=== PATIENT | female | born 1995 | race American Indian/Alaskan Native ===

== ENCOUNTER 2019-02-10 18:58 | Emergency (ER) | payer MEDICAID ==
[2019-02-10] MEDS ORDERED: MORPHINE ONE (19:19)
[2019-02-10] MEDS ORDERED: ZOFRAN ONE (19:19)
[2019-02-10] MEDS ORDERED: XYLOCAINE 1% 20 mL ONE (19:20)
[2019-02-10] MEDS ORDERED: DIPRIVAN 10 MG/ML IV ONE ×2 (19:29→19:30)
[2019-02-10] MEDS ORDERED: MORPHINE IV ONE (19:31)
[2019-02-10] MEDS ORDERED: ZOFRAN IV ONE (19:32)
--- NOTE | 2019-02-10 19:41 | Emergency Department Report ---
ED General Adult HPI - General Chief complaint: Extremity Injury, Lower Stated complaint: RT SHOULDER POSS DISLOCTAED/PAIN Time Seen by Provider: 02/10/19 19:19 Source: patient Mode of arrival: Wheelchair Limitations: No Limitations - History of Present Illness Initial comments: 23-year-old female who is right-hand dominant presents after stating she had a fall on the side of the bed earlier today. Patient states she has no prior history of dislocation. Patient denies any head trauma neck pain or extremity injury to her lower or her opposing upper extremity. Patient states the pain is a 10 out of 10. Severity scale (0 -10): 10 - Related Data Previous Rx's Medication Instructions Recorded Last Taken Type Ibuprofen [Motrin 800 MG tab] 800 mg PO Q8HR PRN #20 tablet 02/10/19 Unknown Rx Allergies Allergy/AdvReac Type Severity Reaction Status Date / Time No Known Allergies Allergy Unverified 02/10/19 19:00 ED Review of Systems ROS: Stated complaint: RT SHOULDER POSS DISLOCTAED/PAIN Other details as noted in HPI Constitutional: denies: chills, fever Eyes: denies: eye pain, eye discharge, vision change ENT: denies: ear pain, throat pain Respiratory: denies: cough, shortness of breath, wheezing Cardiovascular: denies: chest pain, palpitations Endocrine: no symptoms reported Gastrointestinal: denies: abdominal pain, nausea, diarrhea Genitourinary: denies: urgency, dysuria, discharge Musculoskeletal: other (shoulder pain) Skin: denies: rash, lesions Neurological: denies: headache, weakness, paresthesias Psychiatric: denies: anxiety, depression Hematological/Lymphatic: denies: easy bleeding, easy bruising ED Past Medical Hx - Past Medical History Previous Medical History?: No - Surgical History Past Surgical History?: No - Social History Smoking Status: Current Some Day Smoker Substance Use Type: None - Medications Home Medications: Home Medications Medication Instructions Recorded Confirmed Last Taken Type Ibuprofen [Motrin 800 MG tab] 800 mg PO Q8HR PRN #20 tablet 02/10/19 Unknown Rx ED Physical Exam - General Limitations: No Limitations General appearance: alert, other (uncomfortable; ) - Head Head exam: Present: atraumatic, normocephalic - Eye Eye exam: Present: normal appearance - ENT ENT exam: Present: mucous membranes moist - Neck Neck exam: Present: normal inspection - Respiratory Respiratory exam: Present: normal lung sounds bilaterally. Absent: respiratory distress - Cardiovascular Cardiovascular Exam: Present: regular rate, normal rhythm. Absent: systolic murmur, diastolic murmur, rubs, gallop - GI/Abdominal GI/Abdominal exam: Present: soft, normal bowel sounds - Extremities Exam Extremities exam: Present: normal inspection, other (obvious deformity noted to right shoulder region; limited ROM) - Back Exam Back exam: Present: normal inspection - Neurological Exam Neurological exam: Present: alert, oriented X3 - Psychiatric Psychiatric exam: Present: normal affect, normal mood - Skin Skin exam: Present: warm, dry, intact, normal color. Absent: rash ED Course Vital Signs 02/10/19 02/10/19 02/10/19 19:01 20:35 20:53 Temperature 98.9 F Pulse Rate 83 72 Pulse Rate [ 81 Intra-Procedure ] Pulse Rate [ 73 Post-Procedure] Pulse Rate [Pre 81 -Procedure] Respiratory 24 17 Rate Respiratory 23 Rate [Intra- Procedure] Respiratory 16 Rate [Post- Procedure] Respiratory 17 Rate [Pre- Procedure] Blood Pressure 118/76 [Intra- Procedure] Blood Pressure 118/78 [Post-Procedure ] Blood Pressure 111/83 [Pre-Procedure] Blood Pressure 119/80 [Right] O2 Sat by Pulse 100 Oximetry O2 Sat by Pulse 100 Oximetry [ Intra-Procedure ] O2 Sat by Pulse 100 Oximetry [Post -Procedure] O2 Sat by Pulse 100 Oximetry [Pre- Procedure] - Orthopedic Joint Reduction Joint #1 Consent Obtained: written consent Time Out Performed: Yes Side: right Joint Reduction Location: shoulder Analgesia: moderate sedation Local Anesthetic Used: Lidocaine 1% Amount of Anesthetic Used (mls): 5 Shoulder Technique Used (if applicable): traction/counter-traction, external rotation Technique Used: traction/counter-traction Post-Reduction Neuro Exam: intact Post-Reduction Vascular Exam: intact Post Reduction X-Ray Obtained: Yes Post Reduction X-Ray Results: reduced Splint Applied: Yes Patient Tolerated Procedure: well Critical care attestation.: If time is entered above; I have spent that time in minutes in the direct care of this critically ill patient, excluding procedure time. ED Disposition Clinical Impression: Anterior shoulder dislocation Disposition: - TO HOME OR SELFCARE Is pt being admited?: No Condition: Stable Instructions: Shoulder Dislocation (ED) Prescriptions: Ibuprofen [Motrin 800 MG tab] 800 mg PO Q8HR PRN #20 tablet PRN Reason: Pain, Moderate (4-6) Referrals: AIDE FULLER MD [Staff Physician] - 3-5 Days Time of Disposition: 21:06 Print Language: LATVIAN
--- NOTE | 2019-02-10 20:03 | XRay Report ---
Right shoulder, 2 views INDICATION: Pain following fall today FINDINGS: There is an anteroinferior shoulder dislocation present without definite fracture. Signer Name: Laurent Zuleta MD Signed: 02/10/2019 7:59 PM Workstation Name: [id number]
--- NOTE | 2019-02-10 20:54 | XRay Report ---
Right shoulder-2 views INDICATION: shoulder reduction. COMPARISON: None. IMPRESSION: Interval relocation of the shoulder with no gross fracture identified. Visualized right lung is clear. No significant DJD. Signer Name: Raúl Thompson MD Signed: 02/10/2019 8:50 PM Workstation Name: [id number]
[2019-02-10 21:57] VITALS: BP 122/83
== END 2019-02-10 21:56 | disposition home or self-care (01) ==
LOC: ED 18:58
DX: S43.084A Other dislocation of right shoulder joint, initial encounter (principal); F17.200 Nicotine dependence, unspecified, uncomplicated; W19.XXXA Unspecified fall, initial encounter; Y93.89 Activity, other specified; Y92.89 Other specified places as the place of occurrence of the external cause; Y99.8 Other external cause status
CPT/HCPCS: 23650; 73020; 73030; 96374; 96375; 99283; J2270; J2405; J2704

== ENCOUNTER 2020-11-17 17:31 | Outpatient (CLI) | payer BC, MEDICAID ==
[2020-11-17 18:14] VITALS: BP 97/58
[2020-11-17] MEDS ORDERED: LACTATED RINGERS 1,000 ML IV ONE (18:14)
[2020-11-17 18:51] LABS: Bilirubin,Urine NEG (Negative); Blood,Urine SM (Negative); Color,Urine Yellow (Yellow); Mucus,Urine FEW /HPF; Protein,Urine <15 mg/dL mg/dL (Negative); Urobilinogen,Urine < 2.0 mg/dL (<2.0)
== END 2020-11-17 20:35 | disposition home or self-care (01) ==
LOC: TRG 17:31 → APU 17:34 → TRG 20:35
DX: O26.852 Spotting complicating pregnancy, second trimester (principal); Z3A.24 24 weeks gestation of pregnancy
CPT/HCPCS: 59025; 81001

== ENCOUNTER 2021-03-06 07:23 | Outpatient (CLI) | payer MEDICAID ==
[2021-03-06 08:00] VITALS: BP 111/66
== END 2021-03-06 09:39 | disposition home or self-care (01) ==
LOC: TRG 07:23 → APU 07:24 → TRG 09:39
PROVIDERS: ATTEND Obstetrics & Gynecology
DX: Z34.93 Encounter for supervision of normal pregnancy, unspecified, third trimester (principal); Z3A.40 40 weeks gestation of pregnancy
CPT/HCPCS: 59025

== ENCOUNTER 2021-03-07 02:06 | Inpatient (IN) | payer MEDICAID ==
[2021-03-07] MEDS ORDERED: miSOPROStol 200 MCG TAB PR PRN (02:10)
[2021-03-07] MEDS ORDERED: ACETAMINOPHEN 325 MG TAB PO PRN ×2 (02:10→04:10)
[2021-03-07] MEDS ORDERED: NALOXONE 0.4 MG/1 ML INJ IV PRN (02:10)
[2021-03-07] MEDS ORDERED: MINERAL OIL 30 ML ORAL LIQD PO PRN (02:10)
[2021-03-07] MEDS ORDERED: PROMETHAZINE 25 MG TAB PO PRN ×2 (02:10→04:10)
[2021-03-07] MEDS ORDERED: OXYTOCIN 10 UNIT/1 ML INJ IM PRN (02:10)
[2021-03-07] MEDS ORDERED: BUTORPHANOL 2 MG/1 ML INJ IV PRN ×2 (02:10)
[2021-03-07] MEDS ORDERED: LOPERAMIDE 2 MG CAP PO PRN (02:10)
[2021-03-07] MEDS ORDERED: CARBOPROST TROMETHAMINE 250 MCG/1 ML INJ IM PRN (02:10)
[2021-03-07] MEDS ORDERED: LIDOCAINE (2%) 20 MG/1 ML VIAL 20 ML MDV INFILTRATI ONE (02:10)
[2021-03-07] MEDS ORDERED: ePHEDrine SULFATE 50 MG/1 ML INJ IV PRN ×2 (02:10→03:01)
[2021-03-07] MEDS ORDERED: AMPICILLIN/NS 2 GM/100 ML 2 GM/100 ML BAG IV ONE (02:10)
[2021-03-07] MEDS ORDERED: TERBUTALINE 1 MG/1 ML INJ SUB-Q PRN (02:10)
[2021-03-07] MEDS ORDERED: METHYLERGONOVINE MALEATE 0.2 MG/ML VIAL IM PRN (02:10)
[2021-03-07] MEDS ORDERED: ONDANSETRON 4 MG/2 ML INJ IV PRN ×3 (02:10→04:10)
[2021-03-07] MEDS ORDERED: LACTATED RINGERS 1,000 ML IV SCH (02:15)
--- NOTE | 2021-03-07 02:18 | History and Physical Report ---
History of Present Illness Date of examination: 03/07/21 Date of admission: 03/07/21 02:08 Chief complaint: contractions History of present illness: 25-year-old G2, P1 at 40 weeks 2 day by stated ADITI (03/05/2021) complicated by varicella nonimmune, silent carrier of alpha thalassemia, and GBS positive presenting in active labor, 7 cm. Denies vaginal bleeding or leakage of fluid. Active fetus. Denies PIH symptoms PNC reviewed B+ antibody negative Hemoglobin hematocrit 13.5 and 40.9 Pap smear negative Rubella immune VDRL nonreactive Urine culture negative Hemoglobin B surface antigen negative HIV negative Platelets 241,000 Gonorrhea and chlamydia negative Varicella nonimmune Ultrasound size equal to dates at 9 weeks and 3 days AFP negative Maternity 21 neg 1 hour GTT 99 GBS positive Past History Past Medical History: no pertinent history Past Surgical History: no surgical history Family/Genetic History: diabetes Social history: no significant social history - Obstetrical History Expected Date of Delivery: 03/05/21 Actual Gestation: 40 Week(s) 2 Day(s) : 2 Para: 1 Hx # Term Pregnancies: 1 Number of Living Children: 1 Medications and Allergies Allergies Allergy/AdvReac Type Severity Reaction Status Date / Time No Known Allergies Allergy Verified 11/17/20 18:14 Home Medications Medication Instructions Recorded Confirmed Last Taken Type Ibuprofen [Motrin 800 MG tab] 800 mg PO Q8HR PRN #20 tablet 02/10/19 Unknown Rx Review of Systems All systems: negative (expect HPI) - Vital Signs Vital signs: Vital Signs Pulse BP 100 H 121/75 03/07/21 02:10 03/07/21 02:10 Temp Pulse Resp BP Pulse Ox 94 H 121/75 99 03/07/21 02:11 03/07/21 02:10 03/07/21 02:11 - Physical Exam Abdomen: Positive: normal appearance, soft, normal bowel sounds Genitourinary (Female): Positive: normal external genitalia Uterus: Positive: enlarged - Obstetrical FHR: category 1 Uterine Contraction Monitor Mode: External Cervical Dilatation: 7 Uterine Contraction Pattern: Regular Results All other labs normal. Assessment and Plan - Patient Problems (1) Active labor at term Current Visit: Yes Status: Acute Plan to address problem: Patient presenting in active labor at term. --Pitocin as needed for labor induction --IV pain medication is available. Epidural is also available. --Anticipate
[2021-03-07 02:31] LABS: Hematocrit 39.5 % (30.3-42.9); Hemoglobin 13.5 gm/dl (10.1-14.3); Mean Corpuscular HGB Conc 34 % (30-34); Mean Corpuscular Volume 86 fl (79-97); Platelet Count 184 K/mm3 (140-440); Red Cell Distribution Width 13.9 % (13.2-15.2)
[2021-03-07] MEDS ORDERED: OXYTOCIN DRIP 30 UNITS/500 ML BAG IV SCH ×3 (03:00→05:00)
[2021-03-07] MEDS ORDERED: NALOXONE 2 MG/2 ML INJ IV PRN (03:01)
[2021-03-07] MEDS ORDERED: LACTATED RINGERS 250 ML IV SOLN IV ONE (03:01)
[2021-03-07] MEDS ORDERED: NalbUPHINE 10 MG/1 ML INJ IV PRN (03:01)
[2021-03-07] MEDS ORDERED: diphenhydrAMINE 50 MG/ML VIAL IV PRN (03:01)
--- NOTE | 2021-03-07 03:22 | Anesthesia Consultation ---
Anesthesia Consult and Med Hx Date of service: 03/07/21 - Airway Anesthetic Teeth Evaluation: Good ROM Head & Neck: Adequate Mental/Hyoid Distance: Adequate Mallampati Class: Class I Intubation Access Assessment: Good - Pulmonary Exam CTA: Yes - Cardiac Exam Cardiac Exam: RRR - Pre-Operative Health Status ASA Pre-Surgery Classification: ASA2 Proposed Anesthetic Plan: Epidural - Pulmonary Hx Smoking: No Hx Asthma: No COPD: No Hx Pneumonia: No Hx Sleep Apnea: No - Cardiovascular System Hx Hypertension: No Hx Heart Attack/AMI: No Hx Angina: No - Central Nervous System Hx Seizures: No Hx Psychiatric Problems: No - Gastrointestinal Hx Gastroesophageal Reflux Disease: No - Endocrine Hx Renal Disease: No Hx End Stage Renal Disease: No Hx Liver Disease: No Hx Insulin Dependent Diabetes: No Hx Non-Insulin Dependent Diabetes: No Hx Hypothyroidism: No Hx Hyperthyroidism: No - Hematic Hx Anemia: No Hx Sickle Cell Disease: No - Other Systems Hx Alcohol Use: No
--- NOTE | 2021-03-07 03:23 | Progress Note ---
Labor Epidural - Labor Epidural Start Time: 03:05 Stop Time: 03:18 Performed by:: RAMYA COLIN Procedure: Patient is requesting epidural for labor and pain. H&P, labs were reviewed. Patient IDed, H&P reviewed, all questions and concerns were answered, and consent was signed. Timeout was performed at bedside. Patient in sitting position. Sterile prep and drape was performed. 3ml of 1% lidocaine skin wheal at L[3]- L [4]. 18-gauge Tuohy epidural needle was advanced to loss of resistance with air technique 6cm. Negative CSF negative blood. Epidural catheter advanced to [11] centimeters. [negative] Aspiration [negative] test dose. Sterile dressing applied. Patient tolerated procedure.
[2021-03-07] MEDS ORDERED: fentaNYL-BUPIV 2 MCG/ML-0.125% 200 MCG/100 ML BAG EPIDURAL SCH (04:00)
[2021-03-07] MEDS ORDERED: LANOLIN/ZINC/DIMETHICONE (LANSINOH) 7 GM TP PRN (04:10)
[2021-03-07] MEDS ORDERED: MAGNESIUM HYDROXIDE (MOM) ORAL LIQD UDC PO PRN (04:10)
[2021-03-07] MEDS ORDERED: diphenhydrAMINE 25 MG CAP PO PRN (04:10)
[2021-03-07] MEDS ORDERED: WITCH HAZEL/ GLYCERIN PAD TP PRN (04:10)
[2021-03-07] MEDS ORDERED: PROMETHAZINE 25 MG RECT SUPP PR PRN (04:10)
--- NOTE | 2021-03-07 04:15 | Procedure Note ---
OB Delivery Note - Delivery Date of Delivery: 03/07/21 Surgeon: MIKE THOMSON JR Estimated blood loss: 300cc - Vaginal Delivery presentation: vertex Delivery position: OA Intrapartum events: meconium Delivery induction: AROM Delivery augmentation: rupture of membranes Delivery monitor: external FHT, external uterine Route of delivery: vacuum extraction Indicators for instrumentation: nonreassuring FHR tracing Delivery placenta: spontaneous Episiotomy: none Delivery laceration: 2nd degree, vaginal side wall (hemostatic, unrepaired) Delivery repair: vicryl Anesthesia: epidural Delivery comments: Spontaneous vaginal delivery of male infant at 0351. Meconium stained fluid status post spontaneous delivery of placenta. Second degree perineal laceration repaired with 2-0 Vicryl. Bilateral sidewall lacerations were hemostatic and unrepaired weight 3560 g 20.75 inches. Fundus firm below the umbilicus. EBL 300 cc. - Infant A at 1 minute: 8 at 5 minutes: 9 Gender: Male
[2021-03-07] MEDS ORDERED: AMPICILLIN/NS 1 GM/50 ML 1 GM/50 ML BAG IV SCH (07:00)
[2021-03-07] MEDS: IBUPROFEN 600 MG TAB PO SCH ×3 (09:32→23:12)
[2021-03-07] MEDS: oxyCODONE /ACETAMINOPHEN 5-325MG TAB PO PRN ×2 (10:39→17:44)
--- NOTE | 2021-03-07 12:27 | Post Anesthesia Evaluation ---
- Post Anesthesia Evaluation Patient Participated: Yes Airway Patent: Yes Stable Respiratory Function: Yes Nausea/Vomiting: No Temp > 96.8F: Yes Pain Manageable: Yes Adequeate Hydration: Yes Anesthesia Complications: No Block Receding Appropriately: Yes Patient on Ventilator: No
[2021-03-07 19:09] LABS: Hematocrit 33.3 % (30.3-42.9); Hemoglobin 11.7 gm/dl (10.1-14.3)
[2021-03-08] MEDS: IBUPROFEN 600 MG TAB PO SCH ×3 (06:25→22:39)
[2021-03-08] MEDS: oxyCODONE /ACETAMINOPHEN 5-325MG TAB PO PRN (11:12)
--- NOTE | 2021-03-08 11:29 | Progress Note ---
Assessment and Plan A: PP Day #1 Stable P: Follow Routine Orders D/C Home today per patient request RTO in 6 Weeks Subjective - Subjective Date of service: 03/08/21 Patient reports: appetite normal, voiding normally, pain well controlled, fl atus, ambulating normally : doing well Objective - Vital Signs Latest vital signs: Vital Signs Temp Pulse Resp BP BP Pulse Ox Pulse Ox 03/08/21 08:12 97.5 F L 67 18 102/61 98 03/08/21 00:35 98.4 F 72 20 99/54 97 03/07/21 19:30 99 03/07/21 15:55 98.3 F 82 20 101/56 03/07/21 12:38 98.0 F 75 19 97/57 97 Intake and Output 03/07/21 03/08/21 03/08/21 22:59 06:59 14:59 Intake Total 880 480 Balance 880 480 Intake: Oral 880 480 Other: Total, Intake Amount 240 240 # Voids Void 1 1 - Exam Breasts: Present: normal Cardiovascular: Present: Regular rate Lungs: Present: Clear to auscultation, Normal air movement Abdomen: Present: normal appearance, soft, normal bowel sounds Uterus: Present: normal, firm, fundal height below umbilicus Extremities: Present: normal
--- NOTE | 2021-03-08 11:31 | Discharge Summary ---
Providers - Providers Date of Admission: 03/07/21 02:10 Date of discharge: 03/08/21 Attending physician: MIKE THOMSON JR, MD Primary care physician: MIKE THOMSON JR, MD Hospitalization Reason for admission: active labor Delivery: Episiotomy: none Laceration: 2nd degree Other procedures: none complications: none Discharge diagnosis: IUP at term delivered [place] baby: male Condition at discharge: Good Disposition: 01 HOME / SELF CARE / HOMELESS Plan - Provider Discharge Summary Activity: routine, no sex for 6 weeks, no heavy lifting 4 weeks, no strenuous exercise Diet: routine Instructions: routine Additional instructions: [] Smoking cessation referral if applicable(refer to patient education folder for contact #) [] Refer to [facility]'s [facility] Booklet Call your doctor immediately for: * Fever > 100.5 * Heavy vaginal bleeding ( >1 pad per hour) * Severe persistent headache * Shortness of breath * Reddened, hot, painful area to leg or breast * Drainage or odor from incision. * Keep incision clean and dry at all times and follow doctor's instructions regarding bathing/showering - Follow up plan Follow up: MIKE THOMSON JR, MD [Primary Care Provider] - 6 Weeks
[2021-03-09] MEDS: oxyCODONE /ACETAMINOPHEN 5-325MG TAB PO PRN (00:56)
[2021-03-09] MEDS: IBUPROFEN 600 MG TAB PO SCH (06:27)
[2021-03-09 12:26] VITALS: BP 102/63
== END 2021-03-09 12:00 | disposition home or self-care (01) | DRG 775 ==
LOC: TRG 02:06 → APU 02:07 → UNDOADMIN 02:08 → LD 02:08 → TRG 02:08 → LD 02:10 → OB 06:00
PROVIDERS: ADMIT Obstetrics & Gynecology; ATTEND Obstetrics & Gynecology
PROC: 10D07Z6 Extraction of Products of Conception, Vacuum, Via Natural or Artificial Opening (ICD-10-PCS; principal; 2021-03-07)
PROC: 0KQM0ZZ Repair Perineum Muscle, Open Approach (ICD-10-PCS; 2021-03-07)
PROC: 10907ZC Drainage of Amniotic Fluid, Therapeutic from Products of Conception, Via Natural or Artificial Opening (ICD-10-PCS; 2021-03-07)
PROC: 3E0R3BZ Introduction of Anesthetic Agent into Spinal Canal, Percutaneous Approach (ICD-10-PCS; 2021-03-07)
PROC: 00HU33Z Insertion of Infusion Device into Spinal Canal, Percutaneous Approach (ICD-10-PCS; 2021-03-07)
DX: O77.0 Labor and delivery complicated by meconium in amniotic fluid (principal); Z37.0 Single live birth; Z3A.40 40 weeks gestation of pregnancy; Z20.822 Contact with and (suspected) exposure to COVID-19; O99.824 Streptococcus B carrier state complicating childbirth; O70.1 Second degree perineal laceration during delivery
CPT/HCPCS: 36415; 59025; 85014; 85018; 85027; 86592; 86850; 86900; 86901; 88307; 99211; G0378; G0463; J0290; J2590; U0003

== ENCOUNTER 2021-11-04 16:36 | Emergency (ER) | payer MEDICAID ==
--- NOTE | 2021-11-04 18:03 | XRay Report ---
RIGHT SHOULDER 2 VIEW(S) 11/04/21 5:22 PM INDICATION / CLINICAL INFORMATION: FALL. Right shoulder injury. COMPARISON: 02/10/19 FINDINGS: BONES / JOINT(S): Anterior dislocation of the right humeral head relative to the glenoid. No definite fracture. No significant arthritis. SOFT TISSUES: No significant abnormality. ADDITIONAL FINDINGS: None. IMPRESSION: 1. Right anterior shoulder dislocation. Signer Name: Seng Jernigan MD Signed: 11/04/2021 5:59 PM Workstation Name: [id number]
[2021-11-04] MEDS ORDERED: SODIUM CHLORIDE 0.9% 1000 ML 1,000 ML IV ONE (18:23)
[2021-11-04] MEDS ORDERED: ONDANSETRON 4 MG/2 ML INJ IV ONE (18:23)
[2021-11-04] MEDS ORDERED: MORPHINE 4 MG/1 ML INJ IV ONE (18:23)
[2021-11-04] MEDS ORDERED: ETOMIDATE 20 MG/10 ML INJ IV ONE ×2 (19:02→20:01)
--- NOTE | 2021-11-04 20:09 | XRay Report ---
RIGHT SHOULDER 2 VIEW(S) INDICATION / CLINICAL INFORMATION: post reduction COMPARISON: Earlier same day FINDINGS: BONES / JOINT(S): Successful interval reduction in previously noted anterior glenohumeral dislocation . No definite fracture identified. No significant arthritis. SOFT TISSUES: No significant abnormality. ADDITIONAL FINDINGS: None. Signer Name: Akil Martin MD Signed: 11/04/2021 8:05 PM Workstation Name: [id number]
--- NOTE | 2021-11-04 20:19 | Emergency Department Report ---
ED General Adult HPI - General Chief complaint: Extremity Injury, Upper Stated complaint: DISLOCATED SHOULDER PUI?: No Time Seen by Provider: 11/04/21 18:17 Source: patient Mode of arrival: Ambulatory Limitations: No Limitations - History of Present Illness Initial comments: REPORTS POSSIBLE SHOULDER DISLOCATION AFTER FALLING WHILE MOPPING THE FLOOR -: Sudden, hour(s) Location: upper extremity Severity scale (0 -10): 10 Quality: aching Consistency: constant Improves with: immobilization Worsens with: movement Associated Symptoms: denies: denies other symptoms, confusion, chest pain, cough, diaphoresis Treatments Prior to Arrival: none - Related Data Previous Rx's Medication Instructions Recorded Last Taken Type Ibuprofen [Motrin 800 MG tab] 800 mg PO Q8HR PRN #20 tablet 02/10/19 1 Day Ago Rx ~03/07/21 Allergies Allergy/AdvReac Type Severity Reaction Status Date / Time No Known Allergies Allergy Verified 11/17/20 18:14 ED Review of Systems ROS: Stated complaint: DISLOCATED SHOULDER Other details as noted in HPI Constitutional: denies: chills, fever Eyes: denies: eye pain, eye discharge, vision change ENT: denies: ear pain, throat pain Respiratory: denies: cough, shortness of breath, wheezing Cardiovascular: denies: chest pain, palpitations Endocrine: no symptoms reported Gastrointestinal: denies: abdominal pain, nausea, diarrhea Genitourinary: denies: urgency, dysuria, discharge Musculoskeletal: denies: back pain, joint swelling, arthralgia Skin: denies: rash, lesions Neurological: denies: headache, weakness, paresthesias Psychiatric: denies: anxiety, depression Hematological/Lymphatic: denies: easy bleeding, easy bruising ED Past Medical Hx - Past Medical History Hx Hypertension: No Hx Heart Attack/AMI: No Hx Congestive Heart Failure: No Hx Diabetes: No Hx Deep Vein Thrombosis: No Hx Liver Disease: No Hx Renal Disease: No Hx Sickle Cell Disease: No Hx Seizures: No Hx Asthma: No Hx COPD: No Hx HIV: No - Social History Smoking Status: Never Smoker - Medications Home Medications: Home Medications Medication Instructions Recorded Confirmed Last Taken Type Ibuprofen [Motrin 800 MG tab] 800 mg PO Q8HR PRN #20 tablet 02/10/19 03/08/21 1 Day Ago Rx ~03/07/21 ED Physical Exam - General Limitations: No Limitations General appearance: alert, in no apparent distress - Head Head exam: Present: atraumatic, normocephalic - Eye Eye exam: Present: normal appearance - ENT ENT exam: Present: mucous membranes moist - Neck Neck exam: Present: normal inspection - Respiratory Respiratory exam: Present: normal lung sounds bilaterally. Absent: respiratory distress - Cardiovascular Cardiovascular Exam: Present: regular rate, normal rhythm. Absent: systolic murmur, diastolic murmur, rubs, gallop - GI/Abdominal GI/Abdominal exam: Present: soft, normal bowel sounds - Extremities Exam Extremities exam: Present: normal inspection - Expanded Upper Extremity Exam Right Shoulder Exam: Present: tenderness, dislocation - Back Exam Back exam: Present: normal inspection - Neurological Exam Neurological exam: Present: alert, oriented X3 - Psychiatric Psychiatric exam: Present: normal affect, normal mood - Skin Skin exam: Present: warm, dry, intact, normal color. Absent: rash ED Course Vital Signs 11/04/21 11/04/21 11/04/21 17:05 18:34 19:14 Temperature 98.6 F Temperature [ Pre-Procedure] Pulse Rate 82 Pulse Rate [Pre -Procedure] Respiratory 20 18 17 Rate Respiratory Rate [Post- Procedure] Respiratory Rate [Pre- Procedure] Blood Pressure Blood Pressure 119/77 [Left] Blood Pressure [Post-Procedure ] Blood Pressure [Pre-Procedure] O2 Sat by Pulse 99 100 Oximetry O2 Sat by Pulse Oximetry [ Intra-Procedure ] O2 Sat by Pulse Oximetry [Post -Procedure] O2 Sat by Pulse Oximetry [Pre- Procedure] 11/04/21 11/04/21 11/04/21 19:15 19:22 19:30 Temperature 99 F Temperature [ Pre-Procedure] Pulse Rate 78 77 102 H Pulse Rate [Pre -Procedure] Respiratory 16 22 Rate Respiratory Rate [Post- Procedure] Respiratory Rate [Pre- Procedure] Blood Pressure 104/61 Blood Pressure 114/73 [Left] Blood Pressure [Post-Procedure ] Blood Pressure [Pre-Procedure] O2 Sat by Pulse 100 100 Oximetry O2 Sat by Pulse Oximetry [ Intra-Procedure ] O2 Sat by Pulse Oximetry [Post -Procedure] O2 Sat by Pulse Oximetry [Pre- Procedure] 11/04/21 11/04/21 19:46 19:54 Temperature Temperature [ 99 F Pre-Procedure] Pulse Rate 99 H Pulse Rate [Pre 78 -Procedure] Respiratory Rate Respiratory 18 Rate [Post- Procedure] Respiratory 20 Rate [Pre- Procedure] Blood Pressure 115/65 Blood Pressure [Left] Blood Pressure 110/65 [Post-Procedure ] Blood Pressure 104/61 [Pre-Procedure] O2 Sat by Pulse 100 Oximetry O2 Sat by Pulse 100 Oximetry [ Intra-Procedure ] O2 Sat by Pulse 100 Oximetry [Post -Procedure] O2 Sat by Pulse 100 Oximetry [Pre- Procedure] - Procedure Description Procedures done: right shoulder dislocation reduction under moderate sedation using etomidate - Orthopedic Joint Reduction Joint #1 Consent Obtained: written consent Time Out Performed: Yes Side: right Joint Reduction Location: shoulder Analgesia: moderate sedation Shoulder Technique Used (if applicable): external rotation Post-Reduction Neuro Exam: intact Post-Reduction Vascular Exam: intact Post Reduction X-Ray Obtained: Yes Post Reduction X-Ray Results: reduced Patient Tolerated Procedure: well, no complications Critical care attestation.: If time is entered above; I have spent that time in minutes in the direct care of this critically ill patient, excluding procedure time. ED Disposition Clinical Impression: Shoulder dislocation Disposition: 01 HOME / SELF CARE / HOMELESS Is pt being admited?: No Does the pt Need Aspirin: No Condition: Stable Instructions: Shoulder Dislocation Referrals: ALO LEA [Other] - 3-5 Days AIDE FULLER MD [Staff Physician] - 3-5 Days
[2021-11-04 22:06] VITALS: BP 122/71
== END 2021-11-04 22:08 | disposition home or self-care (01) ==
LOC: ED 16:36
DX: S43.004A Unspecified dislocation of right shoulder joint, initial encounter (principal); X58.XXXA Exposure to other specified factors, initial encounter; Y93.89 Activity, other specified; Y92.89 Other specified places as the place of occurrence of the external cause; Y99.8 Other external cause status
CPT/HCPCS: 23650; 73030; 96361; 96374; 96375; 99283; J2270; J2405; J3490; J7030